=== PATIENT | male | born 1995 | race Caucasian/White ===

== ENCOUNTER 2017-02-20 04:06 | Emergency (ER) | payer BC ==
[~2017-02-20] VITALS: Ht 177.8 cm; Wt 78.0 kg
[2017-02-20 04:11] VITALS: BP 137/70; PULSE 118; RESP 16; TEMP 98.8; O2SAT 96
[2017-02-20 04:36] VITALS: BP 143/63; PULSE 106; RESP 16; O2SAT 96
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
[2017-02-20] MEDS ORDERED: ACETAMINOPHEN/CODEINE 300 MG/30 MG TAB PO ONE (05:15)
[2017-02-20] MEDS ORDERED: CEPHALEXIN MONOHYDRATE 500 MG CAP PO ONE (05:15)
[2017-02-20] MEDS ORDERED: BACITRACIN TOP OINT 15 GM TUBE TOPICAL ONE (05:15)
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
[2017-02-20] MEDS ORDERED: CEPH-460 PO (06:56)
[2017-02-20] MEDS ORDERED: BACI500O9 TOPICAL (06:57)
[2017-02-20] MEDS ORDERED: TYLETAB34 PO (06:58)
== END 2017-02-20 07:45 | disposition home or self-care (01) ==
LOC: NEPC 04:06
DX: S00.03XA Contusion of scalp, initial encounter (principal); M54.2 Cervicalgia; S81.019A Laceration without foreign body, unspecified knee, initial encounter; S60.512A Abrasion of left hand, initial encounter; S60.511A Abrasion of right hand, initial encounter; Y04.0XXA Assault by unarmed brawl or fight, initial encounter; Y93.9 Activity, unspecified; Y92.89 Other specified places as the place of occurrence of the external cause
CPT/HCPCS: 70450; 72050; 99284